=== PATIENT | female | born 1940 | race American Indian/Alaskan Native ===

== ENCOUNTER 2018-01-22 19:49 | Emergency (ER) | payer MEDICARE ==
[2018-01-22 20:30] LABS: Basophils # (Auto) 0.1 K/mm3 (0.0-0.1); Basophils % (Auto) 0.6 % (0.0-1.8); Eosinophils # (Auto) 0.2 K/mm3 (0.0-0.4); Eosinophils % (Auto) 1.8 % (0.0-4.3); Hematocrit 35.9 % (30.3-42.9); Hemoglobin 12.1 gm/dl (10.1-14.3); Lymphocytes # (Auto) 2.5 K/mm3 (1.2-5.4); Lymphocytes % (Auto) 25.4 % (13.4-35.0); Mean Corpuscular HGB Conc 34 % (30-34); Mean Corpuscular Hemoglobin 33 pg (28-32); Mean Corpuscular Volume 97 fl (79-97); Monocytes # (Auto) 0.5 K/mm3 (0.0-0.8); Monocytes % (Auto) 5.2 % (0.0-7.3); Platelet Count 261 K/mm3 (140-440); Red Blood Count 3.72 M/mm3 (3.65-5.03)
[2018-01-22 21:20] LABS: Bilirubin,Urine NEG (Negative); Blood,Urine LG (Negative); Color,Urine Yellow (Yellow); Hyaline Casts,Urine 1 /LPF; Mucus,Urine 1+ /HPF; Urobilinogen,Urine < 2.0 mg/dL (<2.0)
[2018-01-22 21:21] LABS: RBC,Urine > 182.0 /HPF (0.0-6.0)
[2018-01-23 00:13] LABS: INR 0.98 (0.87-1.13)
[2018-01-23 00:14] LABS: Partial Thromboplastin Time 22.4 Sec. (24.2-36.6)
[2018-01-23] MEDS ORDERED: NACL 0.9% 1000 ML 1,000 ML IV ONE (00:26)
--- NOTE | 2018-01-23 00:52 | Emergency Department Report ---
HPI - General Chief Complaint: Vaginal Bleeding Time Seen by Provider: 01/22/18 23:17 - HPI HPI: The patient is a 77-year-old female whom presents for evaluation of vaginal bleeding. The patient reports 4 days of on and off vaginal bleeding, mild in severity, exacerbated with micturition, and associated with a mild cramping lower abdominal pain. The patient denies fever, chills, night sweats, diarrhea, blood in the stool, dark tarry stool, dysuria, hematuria, flank pain, genital discharge, inability to pass flatus. ED Past Medical Hx - Past Medical History Previous Medical History?: Yes Hx Hypertension: Yes - Surgical History Past Surgical History?: No - Social History Smoking Status: Never Smoker Substance Use Type: None ED Review of Systems ROS: Stated complaint: VAGINAL BLEED/CLOTTING Other details as noted in HPI Constitutional: denies: fever ENT: denies: throat or neck pain Respiratory: denies: cough, shortness of breath Cardiovascular: denies: chest pain Endocrine: denies unexplained weight loss or gain Gastrointestinal: denies: abdominal pain, nausea Genitourinary: reports vaginal bleeding denies: dysuria Musculoskeletal: denies: leg swelling Skin: denies: rash Neurological: denies: headache Hematological/Lymphatic: denies: easy bleeding or easy bruising Psych: denies sadness or hopelessness Physical Exam - Physical Exam Vital Signs: Vital Signs 01/22/18 19:49 Temperature 98.4 F Pulse Rate 118 H Respiratory 16 Rate Blood Pressure 129/62 O2 Sat by Pulse 97 Oximetry Physical Exam: General: well-nourished, well-developed, no acute distress Head: Normocephalic, atraumatic Eyes: normal sclera ENT: Mucous membranes are piink and moist Neck: trachea midline, neck supple, No neck stiffness, no cervical adenopathy Respiratory: Breath sounds equal bilaterally, no wheezing, rales, or rhonchi Cardio: S1 and S2 present, no murmurs, rubs, gallops, capillary refill is brisk Abdomen: Normoactive bowel sounds, soft abdomen, suprapubic TTP present, physical no rigidity, no guarding or rebound tenderness Chest WALL/Back: No tenderness to palpation of the chest wall, no CVA tenderness with percussion Musc: No pitting edema Skin: No rash Neuro: no facial drooping, normal speech Psych: Normal affect ED Course Vital Signs 01/22/18 19:49 Temperature 98.4 F Pulse Rate 118 H Respiratory 16 Rate Blood Pressure 129/62 O2 Sat by Pulse 97 Oximetry ED Medical Decision Making - Lab Data Result diagrams: 01/22/18 20:14 - Medical Decision Making The patient was seen and examined by myself. The patient is placed on a monitor worker and continuous pulse ox. On initial evaluation, the patient was found to be in no distress. Evaluation orders are placed. IV access is established and the patient is given 1 L normal saline fluid bolus and Zofran for nausea, and IV analgesic for pain Lab results were non-concerning including WBC, hemoglobin, hematocrit, electrolytes, renal function, LFTs, lipase, and urinalysis. The patient was reevaluated and reported that their symptoms were markedly improved. The patient is stable for discharge with outpatient follow-up. The patient is given follow-up and return instructions. The patient expressed understanding and agreed with the plan. The patient is discharged in stable condition. Critical care attestation.: If time is entered above; I have spent that time in minutes in the direct care of this critically ill patient, excluding procedure time. ED Disposition Clinical Impression: Vaginal bleeding Disposition: DC-01 TO HOME OR SELFCARE Is pt being admited?: No Does the pt Need Aspirin: No Condition: Stable Referrals: PRIMARY CARE, [Primary Care Provider] - 3-5 Days
[2018-01-23 01:19] LABS: Calcium 9.8 mg/dL (8.4-10.2)
--- NOTE | 2018-01-23 02:57 | Cat Scan Report ---
FINAL REPORT EXAM: CT ABDOMEN PELVIS W CON HISTORY: postmenopausal vag bleeding, abdominal pain TECHNIQUE: Routine axial imaging was obtained of the abdomen and pelvis following the intravenous injection of 100 cc of Omnipaque 300. Delayed imaging was obtained through the kidneys ureters and bladder. Sagittal and coronal reconstructions were reviewed. There are no previous studies available for comparison. FINDINGS: The lung bases do not show infiltrates or effusions. The liver, gallbladder, biliary tree, and pancreas appear normal. The spleen and adrenal glands appear normal. The kidneys reveal benign cortical cysts bilaterally the largest in the right kidney measuring 3.9 cm in diameter. There is no evidence of hydronephrosis. The abdominal aorta is normal in caliber. The bowel loops are not distended. There are multiple fluid-filled loops of small bowel in the pelvis. The appendix appears normal. The uterus is enlarged having a lobulated contour suggesting fibroids. The bladder appears normal. There is no free fluid or adenopathy. The skeletal structures reveal arthritic changes in the lumbar spine. IMPRESSION: Enlarged uterus having a lobulated contour suggesting fibroids. Pelvic sonography is recommended for further evaluation. Multiple nondistended fluid-filled loops of small bowel in the pelvis. A mild nonobstructive ileus/enteritis cannot be excluded. Benign cortical cysts in both kidneys. 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 Incidental note is made of several uncomplicated sigmoid diverticula.
--- NOTE | 2018-01-23 03:42 | Ultrasound Report ---
FINAL REPORT EXAM: US PELVIC COMPLETE HISTORY: vag bleeding, postmenopausal TECHNIQUE: Transabdominal imaging was obtained of the pelvis. FINDINGS: The uterus is retroflexed measuring 9.3 cm x 3.7 cm x 5.6 cm. The myometrium is homogeneous. Fibroids are not seen. The endometrial thickness is 3.5 mm and is homogeneous. Free fluid is not seen. The right ovary is not adequately seen for evaluation. The left ovary is normal size contour and echotexture measuring 2.4 cm x 1.4 cm x 1.4 cm. IMPRESSION: Retroflexed uterus without evidence of fibroids or endometrial thickening. Normal-appearing left ovary. Right ovary not identified. No evidence of free fluid or pelvic masses.
--- NOTE | 2018-01-23 03:52 | Emergency Department Report ---
ED General Adult HPI - General Chief complaint: Vaginal Bleeding Stated complaint: VAGINAL BLEED/CLOTTING Time Seen by Provider: 01/22/18 23:17 Source: patient, family Mode of arrival: Ambulatory Limitations: No Limitations - History of Present Illness Initial comments: I took over care of this patient from Dr. Borjas to follow up on her imaging. CT and ultrasound show likely uterine fibroids. hgb stable. Ct shows concerns for mild ileus vs sbo. Pt has no abd pain, N, V. I believe that this is an incidental finding. I will have the patient follow up with her family doctor for her unlikely sbo and with local delivery driver for her vaginal bleeding. - Related Data Allergies Allergy/AdvReac Type Severity Reaction Status Date / Time No Known Allergies Allergy Unverified 01/22/18 19:58 ED Review of Systems ROS: Stated complaint: VAGINAL BLEED/CLOTTING Other details as noted in HPI ED Past Medical Hx - Past Medical History Previous Medical History?: Yes Hx Hypertension: Yes - Surgical History Past Surgical History?: No - Social History Smoking Status: Never Smoker Substance Use Type: None ED Physical Exam - General Limitations: No Limitations ED Course Vital Signs 01/22/18 01/23/18 19:49 02:40 Temperature 98.4 F Pulse Rate 118 H Respiratory 16 20 Rate Blood Pressure 129/62 O2 Sat by Pulse 97 Oximetry ED Medical Decision Making - Lab Data Result diagrams: 01/22/18 20:14 01/23/18 00:46 Critical care attestation.: If time is entered above; I have spent that time in minutes in the direct care of this critically ill patient, excluding procedure time. ED Disposition Clinical Impression: Uterine fibroid, Vaginal bleeding Disposition: DC-01 TO HOME OR SELFCARE Is pt being admited?: No Does the pt Need Aspirin: No Condition: Stable Additional Instructions: Please follow up with your CHECK CLERK about your vaginal bleeding. IF you develop abd pain with persistent vomiting/nausea, please follow up with your family doctor for a rule out small bowel obstruction. You have minor signs of it on your CT from today, but no symptoms from it and it only requires evaluation if it becomes a problem. Referrals: PRIMARY CARE, [Primary Care Provider] - 3-5 Days
[2018-01-23 04:03] VITALS: BP 115/81
== END 2018-01-23 05:20 | disposition home or self-care (01) ==
LOC: ED 19:49
DX: D25.9 Leiomyoma of uterus, unspecified (principal); I10 Essential (primary) hypertension
CPT/HCPCS: 36415; 74177; 76856; 80048; 81001; 84702; 85025; 85610; 85730; 86850; 86900; 86901; 99284; J7030; Q9967